=== PATIENT | male | born 1990 | race Caucasian/White ===

== ENCOUNTER 2019-11-08 14:44 | Emergency (ER) | payer MEDICAID, OTHER ==
[~2019-11-08] VITALS: Ht 185.4 cm; Wt 92.7 kg
[2019-11-08 14:59] VITALS: BP 136/79
[2019-11-08] MEDS ORDERED: PRED10TA23 PO (15:54)
[2019-11-08] MEDS ORDERED: DIPH25CA83 PO (15:54)
[2019-11-08] MEDS ORDERED: FAMO10TA41 PO (15:54)
== END 2019-11-08 16:36 | disposition home or self-care (01) ==
LOC: ER 14:45
DX: L23.7 Allergic contact dermatitis due to plants, except food (principal); Z79.899 Other long term (current) drug therapy
CPT/HCPCS: 99283

== ENCOUNTER 2020-10-21 13:13 | Emergency (ER) | payer OTHER ==
[~2020-10-21] VITALS: Ht 185.4 cm; Wt 95.3 kg
[~2020-10-21 13:13] MED LIST: DIPH25CA83 PO; FAMO10TA41 PO
[2020-10-21 14:15] VITALS: BP 126/78
[2020-10-21] MEDS ORDERED: ondansetron 4mg rapidly disintigrating tab PO ONE (14:25)
[2020-10-21] MEDS ORDERED: HYDROcodone/acetaminophen 10/325mg tab PO ONE (14:25)
[2020-10-21] MEDS ORDERED: ORPH100T2 PO (15:06)
[2020-10-21] MEDS ORDERED: ONDA4TAB6 PO (15:06)
[2020-10-21] MEDS ORDERED: HYDR-3973 PO (15:06)
== END 2020-10-21 15:14 | disposition home or self-care (01) ==
LOC: ER 13:13
DX: S06.0X1A Concussion with loss of consciousness of 30 minutes or less, initial encounter (principal); S29.012A Strain of muscle and tendon of back wall of thorax, initial encounter; Z79.899 Other long term (current) drug therapy; W22.8XXA Striking against or struck by other objects, initial encounter; Y93.89 Activity, other specified; Y92.89 Other specified places as the place of occurrence of the external cause; Y99.0 Civilian activity done for income or pay
CPT/HCPCS: 72070; 99283

== ENCOUNTER 2021-06-23 08:31 | Emergency (ER) | payer OTHER ==
[~2021-06-23] VITALS: Ht 185.4 cm; Wt 95.5 kg
[~2021-06-23 08:31] MED LIST changes: +ONDA4TAB6 PO; +ORPH100T2 PO
[2021-06-23 08:44] VITALS: BP 133/72
== END 2021-06-23 12:28 | disposition home or self-care (01) ==
LOC: ER 08:32
DX: U07.1 COVID-19 (principal); R05.9 Cough, unspecified; Z79.899 Other long term (current) drug therapy
CPT/HCPCS: 87635; 99283; C9803